=== PATIENT | male | born 1995 | race Two or more races ===

== ENCOUNTER 2018-02-22 21:28 | Emergency (ER) | payer SELFPAY ==
[~2018-02-22] VITALS: Ht 172.7 cm; Wt 63.5 kg
[2018-02-22 21:29] VITALS: BP 131/74
[2018-02-22] MEDS ORDERED: diphenhydrAMINE HCL 25 MG CAPSULE ONE (22:14)
[2018-02-22] MEDS ORDERED: predniSONE 20 MG TABLET ONE (22:14)
[2018-02-22] MEDS: predniSONE 20 MG TABLET PO ONE ×2 (22:15→22:37)
[2018-02-22] MEDS: diphenhydrAMINE HCL 25 MG CAPSULE PO ONE ×2 (22:15→22:37)
== END 2018-02-22 23:00 | disposition home or self-care (01) ==
LOC: ER 23:00
DX: T78.40XA Allergy, unspecified, initial encounter (principal)
CPT/HCPCS: 99283; A4606; J7512; Q0163; Z7610